=== PATIENT | male | born 1955 ===

== ENCOUNTER 2024-07-05 11:45 | Day surgery (SDC) | payer OTHER ==
[2024-06-27 12:53] VITALS: BP 147/88
[~2024-07-05] VITALS: Ht 167.6 cm; Wt 70.8 kg
[~2024-07-05 11:45] MED LIST: BUSPIRONE HCL30 MG PO; COZAAR50 MG PO; GLIPIZIDE XL2.5 MG PO; METFORMIN HCL1000 M2 PO; MIRTAZAPINE15 M1 PO; RESTORIL30 MG PO; TOPROL XL50 M1 PO
[2024-07-05] MEDS ORDERED: HEMOSTATIC MATRIX 1 KIT KIT TOP ONE (13:02)
[2024-07-05] MEDS ORDERED: LIDOCAINE HCL 1%/EPINEPHRINE 20ML VIAL IJ ONE (13:02)
[2024-07-05] MEDS ORDERED: CEFTRIAXONE SODIUM 2,000 MG VIAL ONE (13:02)
[2024-07-05] MEDS ORDERED: POVIDONE-IODINE 118 ML BOTT TOP ONE (13:02)
[2024-07-05] MEDS ORDERED: BUPIVACAINE HCL/MPF 0.5% 30ML VIAL ONE (13:02)
[2024-07-05] MEDS ORDERED: DIBUCAINE 30 GM TUBE ONE (13:02)
[2024-07-05] MEDS ORDERED: METRONIDAZOLE/SODIUM CHLORIDE 500 MG/100 ML PIGGYBACK IV ONE (13:03)
[2024-07-05] MEDS ORDERED: CHLORHEXIDINE GLUCONATE 120 ML BOTTLE TOP ONE (13:58)
== END 2024-07-05 17:30 | disposition home or self-care (01) ==
LOC: CIR.AMB 11:45
PROVIDERS: ATTEND Colon & Rectal Surgery
DX: K64.2 Third degree hemorrhoids (principal); K64.4 Residual hemorrhoidal skin tags; K92.1 Melena; I10 Essential (primary) hypertension; E11.9 Type 2 diabetes mellitus without complications; F41.8 Other specified anxiety disorders; J44.9 Chronic obstructive pulmonary disease, unspecified